=== PATIENT | male | born 1995 ===

== ENCOUNTER 2017-06-16 07:42 | Emergency (ER) | payer SELFPAY ==
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
[2017-06-16] MEDS ORDERED: Lidocaine 1%/Epinephrine 1:100000 30 ml vial IJ STA (08:04)
[2017-06-16 08:09] VITALS: TEMP 99.6
[2017-06-16] MEDS ORDERED: TDAP Vaccine 0.5 mL Syr IM ONE (08:57)
[2017-06-16 09:10] VITALS: BP 121/70; PULSE 89; RESP 17; O2SAT 98
== END 2017-06-16 09:26 | disposition home or self-care (01) ==
LOC: ED 07:42
DX: S01.511A Laceration without foreign body of lip, initial encounter (principal); Y04.0XXA Assault by unarmed brawl or fight, initial encounter